=== PATIENT | female | born 1995 | race Hispanic/Latino ===

== ENCOUNTER 2021-03-02 11:34 | Inpatient (IN) | payer MEDICARE ==
[~2021-03-02] VITALS: Ht 147.3 cm; Wt 85.9 kg
[2021-03-02] MEDS ORDERED: ALBUTEROL INHALER 90MCG/INH IH PRN (12:30)
[2021-03-02 12:48] LABS: BASOPHILS % (AUTO) 0.4 % (0.0-5.0); HEMATOCRIT 40.7 % (36-48); LYMPHOCYTES % (AUTO) 28.7 % (21.0-51.0); MEAN CORPUSCULAR HEMOGLOBIN 32.6 pg (27.0-33.0); MEAN CORPUSCULAR HGB CONC 32.4 g/dL (32.0-36.0); MEAN CORPUSCULAR VOLUME 100.5 fL (79-99); MONOCYTES % (AUTO) 13.1 % (3.0-13.0); NEUTROPHILS % (AUTO) 56.6 % (40.0-77.0); PLATELET COUNT (AUTO) 148 K/uL (130-400); RED BLOOD CELL COUNT(AUTO) 4.05 MIL/uL (4.00-5.50); RED CELL DISTRIBUTION WIDTH 12.7 % (11.0-15.5); WHITE BLOOD COUNT (AUTO) 2.4 K/uL (4.8-10.8)
[2021-03-02 12:59] LABS: POTASSIUM 4.3 mmol/L (3.5-5.1)
[2021-03-02] MEDS ORDERED: APAP/CODEINE 120/12MG 5ML PO PRN (13:00)
[2021-03-02] MEDS ORDERED: AZITHROMYCIN 250 MG TABLET PO ONE ×2 (13:00→14:14)
[2021-03-02] MEDS ORDERED: CEFTRIAXONE 1G VIAL IVP ONE (13:00)
[2021-03-02 13:04] LABS: ALBUMIN 2.9 g/dL (3.5-5.0); BILIRUBIN,TOTAL 0.3 mg/dL (0.2-1.0); CRP QUANTITATIVE 34.3 mg/L (0.00-9.0); TOTAL PROTEIN, SERUM 7.1 g/dL (6.0-8.3)
[2021-03-02 13:08] LABS: B-TYPE NATRIURETIC PEPTIDE 9 pg/mL (0-100)
[2021-03-02 13:47] LABS: BAND NEUTROPHILS % (MANUAL) 3 % (0-2); LYMPHOCYTES % (MANUAL) 28 % (22-44); MAN.DIFF COMMENT-IMPRESSION MANUAL DIFFERENTIAL; MONOCYTES % (MANUAL) 3 % (2-9); PLATELET MORPHOLOGY COMMENT ADEQUATE; REACTIVE LYMPHOCYTES 1 % (0-0); SEGMENTED NEUTROPHILS % 65 % (40-70)
[2021-03-02] MEDS ORDERED: CEFTRIAXONE 1G VIAL ONE (14:13)
[2021-03-02] MEDS ORDERED: 0.9%NACL 50ML 50 ML IV ONE (14:14)
[2021-03-02 14:54] VITALS: BP 100/66
[2021-03-02] MEDS ORDERED: ACETAMINOPHEN 325 MG/10.15ML UDCUP PO PRN (16:00)
[2021-03-02 19:12] VITALS: BP 91/59
[2021-03-02] MEDS ORDERED: LACTATED RINGERS 1000ML 1,000 ML IV ONE (20:00)
[2021-03-02] MEDS: 0.9%NACL 50ML IV SCH (20:00)
[2021-03-02 20:34] LABS: APPEARANCE,URINE Clear (CLEAR); BILIRUBIN,URINE Negative (NEGATIVE); COLOR,URINE Dark Yellow (YELLOW); GLUCOSE, URINE (UA) Negative (NEGATIVE); KETONES,URINE Trace mg/dL (NEGATIVE); LEUKOCYTE ESTERASE ,URINE Negative (NEGATIVE); NITRATE,URINE Negative (NEGATIVE); OCCULT BLOOD,URINE Negative (NEGATIVE); PROTEIN,URINE Trace mg/dL (NEGATIVE)
[2021-03-02 20:37] LABS: HCG,QUAL RESULT NEGATIVE (NEGATIVE)
[2021-03-02] MEDS: ZOSYN 3.375GM +NS 50ML IV SCH (20:42)
[2021-03-02 20:52] VITALS: BP 125/84
[2021-03-02 21:57] VITALS: BP 104/69
[2021-03-02 22:50] VITALS: BP 134/55
[2021-03-02 23:32] VITALS: BP 134/55
[2021-03-03] VITALS (7 sets, daily range): BP systolic 90–140; BP diastolic 43–80
[2021-03-03] MEDS ORDERED: LEVO75TA4 PO (00:08)
[2021-03-03] MEDS: ZOSYN 3.375GM +NS 50ML IV SCH ×3 (04:53→20:37)
[2021-03-03] MEDS: 0.9%NACL 50ML IV SCH ×3 (04:53→20:37)
[2021-03-03 06:01] LABS: BASOPHILS % (AUTO) 0.5 % (0.0-5.0); EOSINOPHILS % (AUTO) 0.5 % (0.0-8.0); HEMATOCRIT 37.8 % (36-48); LYMPHOCYTES % (AUTO) 48.8 % (21.0-51.0); MEAN CORPUSCULAR HEMOGLOBIN 32.9 pg (27.0-33.0); MEAN CORPUSCULAR HGB CONC 32.8 g/dL (32.0-36.0); MEAN CORPUSCULAR VOLUME 100.3 fL (79-99); MONOCYTES % (AUTO) 11.6 % (3.0-13.0); NEUTROPHILS % (AUTO) 36.3 % (40.0-77.0); PLATELET COUNT (AUTO) 159 K/uL (130-400); RED BLOOD CELL COUNT(AUTO) 3.77 MIL/uL (4.00-5.50); RED CELL DISTRIBUTION WIDTH 12.7 % (11.0-15.5); WHITE BLOOD COUNT (AUTO) 2.2 K/uL (4.8-10.8)
[2021-03-03 06:21] LABS: CREATININE 0.9 mg/dL (0.5-1.5); MAGNESIUM 2.2 mg/dL (1.80-2.40); POTASSIUM 4.1 mmol/L (3.5-5.1)
[2021-03-03] MEDS ORDERED: AZITHROMYCIN 500MG VIAL IVPB SCH (08:00)
[2021-03-03] MEDS ORDERED: 0.9% NACL 250ML IVPB SCH (08:00)
[2021-03-03] MEDS: ENOXAPARIN SODIUM 40 MG/0.4 ML SYRINGE SQ SCH (08:05)
[2021-03-03] MEDS: AZITHROMYCIN 500MG+NS 250ML IV SCH (08:58)
[2021-03-03] MEDS: 0.9% NACL 250ML 250 ML IV SCH (08:59)
[2021-03-03] MEDS ORDERED: DOCUSATE SODIUM 100 MG CAP PO SCH (11:00)
[2021-03-03] MEDS ORDERED: PHARMACY COMMUNICATION MISC SCH ×2 (11:00→13:00)
[2021-03-03] MEDS: DEXAMETHASONE SOD PHOSPHATE 4 MG/ML 1ML VIAL IVP SCH (11:14)
[2021-03-03] MEDS ORDERED: REMDESIVIR (EUA) 520 200 MG in 0.9% NACL 250ML 250 ML IV ONE (13:00)
[2021-03-03] MEDS ORDERED: COMPOUND IV REFRIGERATED 1 EACH IVSOLN MISC PRN (13:00)
[2021-03-03] MEDS: DOCUSATE NA 100MG/10ML UDCUP PO SCH ×2 (14:25→20:49)
[2021-03-04] VITALS (9 sets, daily range): BP systolic 90–114; BP diastolic 38–75
[2021-03-04] MEDS: ZOSYN 3.375GM +NS 50ML IV SCH ×3 (05:11→21:32)
[2021-03-04] MEDS: 0.9%NACL 50ML IV SCH ×4 (05:12→21:32)
[2021-03-04 05:18] LABS: ALBUMIN 2.5 g/dL (3.5-5.0); BILIRUBIN,TOTAL 0.4 mg/dL (0.2-1.0); CREATININE 0.8 mg/dL (0.5-1.5); CRP QUANTITATIVE 33.2 mg/L (0.00-9.0); POTASSIUM 4.2 mmol/L (3.5-5.1); TOTAL PROTEIN, SERUM 6.6 g/dL (6.0-8.3)
[2021-03-04] MEDS: REMDESIVIR LABS MISC SCH (06:00)
[2021-03-04] MEDS: 0.9% NACL 250ML 250 ML IV SCH (08:03)
[2021-03-04] MEDS: AZITHROMYCIN 500MG+NS 250ML IV SCH (08:03)
[2021-03-04] MEDS: ENOXAPARIN SODIUM 40 MG/0.4 ML SYRINGE SQ SCH (08:08)
[2021-03-04] MEDS: DEXAMETHASONE SOD PHOSPHATE 4 MG/ML 1ML VIAL IVP SCH (08:08)
[2021-03-04] MEDS: DOCUSATE NA 100MG/10ML UDCUP PO SCH ×3 (08:20→21:00)
[2021-03-04] MEDS: LEVOTHYROXINE 75 MCG TABLET PO SCH (09:01)
[2021-03-04] MEDS ORDERED: PHARMACY COMMUNICATION MISC SCH (13:30)
[2021-03-04] MEDS: REMDESIVIR (EUA) 520 100 MG in 0.9% NACL 250ML 250 ML IV SCH (14:44)
[2021-03-05 03:02] VITALS: BP 99/44
[2021-03-05 04:37] LABS: ALBUMIN 2.5 g/dL (3.5-5.0); BILIRUBIN,TOTAL 0.3 mg/dL (0.2-1.0); CREATININE 0.8 mg/dL (0.5-1.5); POTASSIUM 4.4 mmol/L (3.5-5.1); TOTAL PROTEIN, SERUM 6.4 g/dL (6.0-8.3)
[2021-03-05] MEDS: ZOSYN 3.375GM +NS 50ML IV SCH ×3 (05:19→20:55)
[2021-03-05] MEDS: 0.9%NACL 50ML IV SCH ×3 (05:20→20:55)
[2021-03-05] MEDS: REMDESIVIR LABS MISC SCH (06:00)
[2021-03-05 06:25] LABS: BASOPHILS % (AUTO) 0.5 % (0.0-5.0); HEMATOCRIT 37.3 % (36-48); LYMPHOCYTES % (AUTO) 24.2 % (21.0-51.0); MEAN CORPUSCULAR HEMOGLOBIN 32.5 pg (27.0-33.0); MEAN CORPUSCULAR HGB CONC 32.4 g/dL (32.0-36.0); MEAN CORPUSCULAR VOLUME 100.3 fL (79-99); MONOCYTES % (AUTO) 9.6 % (3.0-13.0); NEUTROPHILS % (AUTO) 63.3 % (40.0-77.0); PLATELET COUNT (AUTO) 267 K/uL (130-400); RED BLOOD CELL COUNT(AUTO) 3.72 MIL/uL (4.00-5.50); RED CELL DISTRIBUTION WIDTH 12.2 % (11.0-15.5); WHITE BLOOD COUNT (AUTO) 4.2 K/uL (4.8-10.8)
[2021-03-05 08:00] VITALS: BP 96/54
[2021-03-05] MEDS: 0.9% NACL 250ML 250 ML IV SCH (08:27)
[2021-03-05] MEDS: AZITHROMYCIN 500MG+NS 250ML IV SCH (08:27)
[2021-03-05] MEDS: DEXAMETHASONE SOD PHOSPHATE 4 MG/ML 1ML VIAL IVP SCH (08:28)
[2021-03-05] MEDS: ENOXAPARIN SODIUM 40 MG/0.4 ML SYRINGE SQ SCH (08:28)
[2021-03-05] MEDS: LEVOTHYROXINE 75 MCG TABLET PO SCH (08:28)
[2021-03-05] MEDS: DOCUSATE NA 100MG/10ML UDCUP PO SCH ×3 (08:29→20:42)
[2021-03-05 12:00] VITALS: BP 108/67
[2021-03-05] MEDS: REMDESIVIR (EUA) 520 100 MG in 0.9% NACL 250ML 250 ML IV SCH (14:37)
[2021-03-05 16:00] VITALS: BP 112/49
[2021-03-05] MEDS ORDERED: LINEZOLID 600 MG/ISO-OSM 300 ML IV SCH (17:00)
[2021-03-05 20:45] VITALS: BP 112/55
[2021-03-06 00:21] VITALS: BP 111/56
[2021-03-06] MEDS: ZOSYN 3.375GM +NS 50ML IV SCH ×2 (03:56→12:43)
[2021-03-06] MEDS: 0.9%NACL 50ML IV SCH ×2 (03:56→12:43)
[2021-03-06 04:05] VITALS: BP 105/68
[2021-03-06] MEDS: REMDESIVIR LABS MISC SCH (06:00)
[2021-03-06 08:00] VITALS: BP 104/52
[2021-03-06] MEDS ORDERED: PHARMACY COMMUNICATION MISC SCH (08:00)
[2021-03-06] MEDS: DOCUSATE NA 100MG/10ML UDCUP PO SCH ×2 (08:44→12:41)
[2021-03-06] MEDS: ENOXAPARIN SODIUM 40 MG/0.4 ML SYRINGE SQ SCH (08:44)
[2021-03-06] MEDS: LEVOTHYROXINE 75 MCG TABLET PO SCH (08:44)
[2021-03-06] MEDS: AZITHROMYCIN 500MG+NS 250ML IV SCH (08:44)
[2021-03-06] MEDS: 0.9% NACL 250ML 250 ML IV SCH (08:44)
[2021-03-06] MEDS ORDERED: LINEZOLID 600 MG/ISO-OSM 300 ML IV SCH (09:00)
[2021-03-06] MEDS ORDERED: AMOX-426 PO (11:11)
[2021-03-06 12:00] VITALS: BP 91/66
[2021-03-06 15:06] VITALS: BP 94/54
== END 2021-03-06 19:00 | disposition home or self-care (01) | DRG 871 ==
LOC: EDH 11:34 → EDHIP 15:24 → 2BH 22:19 → 2AH 03-05 16:18 → 3DH 03-05 20:17
PROVIDERS: ADMIT Internal Medicine; ATTEND Internal Medicine
PROC: XW033E5 Introduction of Remdesivir Anti-infective into Peripheral Vein, Percutaneous Approach, New Technology Group 5 (ICD-10-PCS; principal; 2021-03-03)
DX: A41.9 Sepsis, unspecified organism (principal); J18.9 Pneumonia, unspecified organism; J96.01 Acute respiratory failure with hypoxia; D75.89 Other specified diseases of blood and blood-forming organs; Q90.9 Down syndrome, unspecified; E66.9 Obesity, unspecified; Z68.39 Body mass index [BMI] 39.0-39.9, adult; Z20.822 Contact with and (suspected) exposure to COVID-19
CPT/HCPCS: 36415; 36600; 71045; 71250; 74018; 80048; 80053; 81003; 81025; 82728; 82803; 83605; 83735; 83880; 84145; 85025; 85378; 85651; 86140; 86738; 87040; 87449; 87635; 87637; 87804; 87880; 92610; 93306; 93356; 93970; 94760; C9803; G0378; J0456; J0696; J1100; J1650; J2020; J2543; J7050; J7120